=== PATIENT | female | born 1970 | race Caucasian/White ===

== ENCOUNTER 2022-06-25 08:00 | Outpatient (CLI) | payer OTHER ==
[~2022-06-25] VITALS: Ht 162.6 cm; Wt 81.6 kg
== END 2022-06-25 15:00 | disposition home or self-care (01) ==
LOC: SLB 08:00 → EDSTATUS 06-29 07:30
PROVIDERS: ATTEND Obstetrics & Gynecology
DX: Z01.818 Encounter for other preprocedural examination (principal); R10.2 Pelvic and perineal pain; Z88.0 Allergy status to penicillin
CPT/HCPCS: 87081